=== PATIENT | female | born 1980 | race Caucasian/White ===

== ENCOUNTER 2017-10-27 12:36 | Emergency (ER) | payer OTHER ==
[~2017-10-27] VITALS: Ht 167.6 cm; Wt 118.2 kg
[2017-10-27 12:41] VITALS: BP 130/66
[2017-10-27] MEDS ORDERED: ZYRTEC10 M3 PO (12:49)
[2017-10-27] MEDS ORDERED: ADVIL 200MG TA200 MG PO (12:49)
[2017-10-27 14:08] LABS: BASO # 0.1 (0.02-0.10); EOS # 0.2 (0.04-0.40); EOS % 2.6 % (1.0-5.0); HEMATOCRIT 36.1 % (37.0-47.0); HEMOGLOBIN 12.1 g/dL (12.5-16.0); LYMPH# 1.1 (1.50-4.00); MEAN CELL VOLUME 87 fl (78-100); MEAN CORPUSCULAR HEMOGLOBIN 29 pg (27-31); MEAN CORPUSCULAR HGB CONC 34 g/dL (33-37); MEAN PLATELET VOLUME 11.3 fl (7.4-10.4); MONO # 0.5 (0.20-0.80); NEU # 4.8 (1.40-6.50); PLATELET COUNT 236 K/mm3 (130-400); RED BLOOD COUNT 4.15 M/mm3 (4.10-5.30); RED CELL DISTRIBUTION WIDTH 12.9 % (11.5-14.5); WHITE BLOOD COUNT 6.8 K/mm3 (4.8-10.8)
[2017-10-27 14:18] LABS: BUN/CREATININE RATIO 21.1 (6.0-26.0); CALCIUM 8.6 mg/dL (8.4-10.2); POTASSIUM 3.5 mmol/L (3.6-5.0)
[2017-10-27 15:05] LABS: ERYTHROCYTE SEDIMENTATION RATE 5 mm/hr (0-20)
[2017-10-27] MEDS ORDERED: HCTZ 25MG25 MG PO (15:39)
== END 2017-10-27 16:06 | disposition home or self-care (01) ==
LOC: ED 12:36
PROVIDERS: Family Medicine
DX: G56.03 Carpal tunnel syndrome, bilateral upper limbs (principal); R60.0 Localized edema; F17.200 Nicotine dependence, unspecified, uncomplicated
CPT/HCPCS: J1885

== ENCOUNTER → 2021-12-25 | Outpatient (CLI) | payer BC ==
[~2021-12-25] MED LIST: ADVIL 200MG TA200 MG PO; HCTZ 25MG25 MG PO; ZYRTEC10 M3 PO
== END ==
LOC: RAD 08:15
DX: E22.1 Hyperprolactinemia (principal)
CPT/HCPCS: A9575

== ENCOUNTER → 2024-05-29 | Outpatient (CLI) | payer OTHER | LOC: RAD 07:22 | DX: M19.012 Primary osteoarthritis, left shoulder (principal) ==

== ENCOUNTER → 2024-08-14 | Outpatient (CLI) | payer OTHER | LOC: RAD 12:30 | DX: M47.812 Spondylosis without myelopathy or radiculopathy, cervical region (principal); M50.31 Other cervical disc degeneration, high cervical region; M50.321 Other cervical disc degeneration at C4-C5 level; M50.322 Other cervical disc degeneration at C5-C6 level; M50.323 Other cervical disc degeneration at C6-C7 level; M48.02 Spinal stenosis, cervical region ==

== ENCOUNTER 2024-09-08 08:36 | Outpatient (RCR) | payer OTHER | END 2024-10-05 | disposition home or self-care (01) | LOC: PT | DX: M25.512 Pain in left shoulder (principal) ==